=== PATIENT | male | born 1985 | race Two or more races ===

== ENCOUNTER 2025-03-20 11:39 | Inpatient (IN) | payer MEDICARE, MEDICAID ==
[~2025-03-20] VITALS: Ht 167.6 cm; Wt 61.7 kg
[2025-03-20] VITALS (11 sets, daily range): BP systolic 168–205; BP diastolic 109–127; PULSE 63–93; RESP 16–24; TEMP 98.1–99.1; O2SAT 94–98
--- NOTE | 2025-03-20 12:01 | ELECTROCARDIOGRAPH REPORT ---
[facility] Test Date: 2025-03-20 Test Time: 12:00:09 Pat Name: ANTHONY BEE Department: [facility]-ER Patient ID: [facility]-[id number] Room: Gender: M Putty Glazer: : 1985 Requested By: JAMEY BRYANT Order Number: [id number] Reading MD: Measurements Intervals [place] Rate: 82 P: 59 DC: 157 QRS: 80 QRSD: 77 T: 33 QT: 399 QTc: 466 Interpretive Statements Sinus rhythm Minimal ST depression, lateral leads Baseline wander in lead(s) V4 Please click the below link to view image of tracing.
--- NOTE | 2025-03-20 12:29 | RADIOLOGY REPORT ---
CHEST RADIOGRAPH INDICATION: CP TECHNIQUE: Single frontal view of the chest was obtained COMPARISON: None FINDINGS: Lines and Tubes: Tunneled right central venous catheter in satisfactory position. Lungs: Congestion Pleura: Trace bilateral pleural effusion No pneumothorax. Cardiomediastinal contours: Unremarkable Bones: Unremarkable IMPRESSION: Pulmonary vascular congestion.
[2025-03-20 12:41] LABS: MEAN PLATELET VOLUME 7.6 FL (7.4-10.4); RED CELL DISTRIBUTION WIDTH 16.2 % (11.5-14.5)
[2025-03-20 12:54] LABS: CREATININE 10.23 MG/DL (0.60-1.10); TOTAL CARBON DIOXIDE 36.2 MMOL/L (24-32); eCRCL 9 ML/MIN; eGFR 6 ML/MIN
--- NOTE | 2025-03-20 13:01 | Physician Documentation ---
History of Present Illness ~ Chief Complaint: Hypertension Stated Complaint: HIGH BLOOD PRESSURE Time Seen by MD: 12:38 HPI 39 year old male with HTN, ESKD on HD TTS came to the ER with cc of sob, orthopnea, dry cough for > 2weeks, he is not able to sleep during the nights due to nocturnal cough, he denies LE edema, he dose produce urine. denies fever he has undergone HD yesterday he is underging eval for LDKT from his [facility], undergoing HD > 1 Year, and was told he had atrophic kidneys Medication Reconciliation Allergies: Coded Allergies: cefazolin (Unverified Allergy, Unknown, 03/20/25) Scheduled Amlodipine Besylate (Amlodipine Besylate), 1 TAB PO HS, (Reported) Labetalol Hcl (Normodyne), 400 MG PO BID, (Reported) Lisinopril (Lisinopril), 1 TAB PO BID, (Reported) Past Medical History Past Medical History: Hypertension Other Past Medical History: ESKD on HD Past Surgical History: cholecystectomy Alcohol Use: Occasionally Drug Use: none Lives with: Family Lives In: Home Review of Systems All Other Systems at this time: Reviewed and Negative Physical Exam Vital Signs: Temperature: 99.7, Source: Temporal, Heart Rate: 86, Respiratory Rate: 18, BP: 224/134, Pulse Oximetry: 96, Weight: 63.500 Oxygen Flow Rate: 0 General Appearance: alert, no apparent distress Respiratory: lungs clear, normal breath sounds Chest: no accessory muscle use Cardiovascular: regular rate, rhythm Gastrointestinal: normal palpation, non-tender Progress Results/Orders Results/Orders Orders - JAMEY JACK MD Chest,Single View (03/20/25 11:49) Monitor (03/20/25 11:49) Saline Lock (03/20/25 11:49) Oxygen (03/20/25 11:49) Completed Orders - JAMEY JACK MD Chest,Single View (03/20/25 11:49) Cbc/Diff (03/20/25 11:49) PBNP (03/20/25 11:49) Electrocardiogram (03/20/25 11:49) Hs Troponin I W Calculations (03/20/25 11:49) Hs Troponin I W Calculations (03/20/25 13:49) Hs Troponin I W Calculations (03/20/25 14:49) CMP (03/20/25 11:49) Vital Signs 03/20/25 03/20/25 03/20/25 03/20/25 11:46 12:56 13:05 14:18 Temp 99.7 99.0 99.0 Pulse 86 99 93 Resp 18 B/P (MAP) 224/134 195/119 (144) 169/120 (136) Pulse Ox 96 98 O2 Flow Rate 0 0 Laboratory Tests Test 03/20/25 12:19 03/20/25 13:39 03/20/25 14:17 White Blood Count 4.8 Red Blood Count 2.70 L Hemoglobin 9.0 L Hematocrit 26.3 L Mean Corpuscular Volume 97.6 Mean Corpuscular Hemoglobin 33.5 H Mean Corpuscular Hemoglobin Concent 34.3 Red Cell Distribution Width 16.2 H Platelet Count 85 L Mean Platelet Volume 7.6 Neutrophils (%) (Auto) 58.5 Lymphocytes (%) (Auto) 27.8 Monocytes (%) (Auto) 10.7 Eosinophils (%) (Auto) 2.3 Basophils (%) (Auto) 0.7 Neutrophils # (Auto) 2.8 Lymphocytes # (Auto) 1.3 Monocytes # (Auto) 0.5 Eosinophils # (Auto) 0.1 Basophils # (Auto) 0.0 CBC Comment Sodium Level 146 H Potassium Level 5.3 H Chloride Level 103 Carbon Dioxide Level 36.2 H Anion Gap 7 L Blood Urea Nitrogen 45 H Creatinine 10.23 H Estimated GFR/1.73 m2 6 BUN/Creatinine Ratio 4.4 L Glucose Level 91 Calcium Level 8.3 L Total Bilirubin 1.0 Aspartate Amino Transf (AST/SGOT) 37 Alanine Aminotransferase (ALT/SGPT) 42 Alkaline Phosphatase 59 Troponin I High Sensitivity 116 *H 110 *H Pro-B-Type Natriuretic Peptide > 99201 H Total Protein 5.9 L Albumin 2.9 L Globulin 3.0 Albumin/Globulin Ratio 1.0 L Chemistry Comments Troponin I High Sens Percent Delta 5 Troponin I Hi Sens Absolute Change -6 Urine Specimen Description Urinal Urine Color Yellow Urine Clarity Clear Urine pH 8.5 Urine Specific Banks 1.020 Urine Protein >=300 H Urine Glucose (UA) 250 H Urine Ketones Negative Urine Occult Blood Large H Urine Nitrite Negative Urine Bilirubin Negative Urine Urobilinogen 0.2 Urine Leukocyte Esterase Negative Urine RBC 10-20 Urine WBC None seen Urine Squamous Epithelial Cells Few Urine Bacteria None seen Urine Culture Indicated Not ind Volume Urine Centrifuged 10 ml Urine Comment Medical Decision Making Additional information obtaine: old records Findings 39 year old male with HTN, ESKD on HD TTS came to the ER with cc of sob, ort hopnea, dry cough for > 2weeks, he is not able to sleep during the nights due to nocturnal cough, he denies LE edema, he dose produce urine. denies fever he has undergone HD yesterday he is underging eval for LDKT from his [facility], undergoing HD > 1 Year, and was told he had atrophic kidneys Labs- anemia, with elevated K of 5.3 probnp >17863, and trops of 116 EKG- mild st depression in v5 cxr- b/l pleural effusions Dd include pum edema 2/2 htn emergency, heart failure, TYPE 2 NE, will give lasix 60 mg once, labetalol 400 mg once, and aspirin 325 mg once he needs to be admitted for eval of pulm edema and htn emergency Consulted Dr. Patterson nephro and recommended nitro/nicardipine drip Heart Score: 3 Differential Dx:Considerations: Include: hypertension, malignant Departure Time of Disposition: 13:40 Admitted to Inpatient Unit: yes, to hospitalist Impression: Primary Impression: Hypertensive emergency Condition: Guarded Referrals: NO PRIMARY CARE PROVIDER (PCP) Additional Comment Seen with PA/ENVIRONMENTAL ENGINEERING PROFESSOR The patient is a 39-year-old male with end-stage renal disease on dialysis who comes in with shortness of breath as well as elevated troponin and evidence of some vascular congestion in his chest x-ray with extreme hypertension. The patient was treated in the emergency room with labetalol, the patient has fairly uncontrolled blood pressure and does have some concern for possible volume overload given the vascular congestion seen on his chest x-ray the patient will be admitted to the hospital with renal on consult. The patient's prior hospitalizations has been reviewed. The patient's pulse oximetry was interpreted as normal and adequate. The patient is nurse monitoring was interpreted as a sinus rhythm. The patient was seen with the resident physician I have reviewed the resident's note and I agree with the note in the assessment and plan as written. I have supervised all aspects of the residents care. I have individually examined the patient. Signature Scribe Signature: No scribe, Attestation: The note accurately reflects work and decisions made by me.Jamey Jack MD 03/22/25 06:48 findings, assessment, plan, and dispo d/w Dr. Marcie HODGE The note accurately reflects work and decisions made by me.Jamey Jack MD 03/22/25 06:48 MARTHA COFFEY, RES Mar 20, 2025 13:01 JAMEY JACK MD Mar 22, 2025 06:48
[2025-03-20 13:22] LABS: PRO BRAIN NATRIURETIC PEPTIDE > 30000 PG/ML (0-125)
[2025-03-20] MEDS ORDERED: morphine 4 MG/ML inj SYRINge IV PRN ×2 (14:40)
[2025-03-20] MEDS ORDERED: magnesium hydroxide 30ml (MOM) UD suspension PO PRN (14:40)
[2025-03-20] MEDS ORDERED: magnesium sulf-water 4G/100mL 100 ML IV PRN (14:40)
[2025-03-20] MEDS ORDERED: mag hydrox/Alum hydrox/simeth 30ml oral suspension PO PRN (14:40)
[2025-03-20] MEDS ORDERED: metoclopramide 5 mg/ml inj IV PRN (14:40)
[2025-03-20] MEDS ORDERED: ondansetron 4mg rapidly disintigrating tab PO PRN (14:40)
[2025-03-20] MEDS ORDERED: ondansetron/PF 4mg/2ml inj IV PRN (14:40)
[2025-03-20] MEDS ORDERED: magnesium Cl slow-release 64mg tablet PO PRN (14:40)
[2025-03-20] MEDS ORDERED: HYDROcodone/acetaminophen 5mg/325mg tablet PO PRN (14:40)
[2025-03-20] MEDS ORDERED: potassium Cl 40MEQ/1/2NS 520ml 520 ML IV PRN (14:40)
[2025-03-20] MEDS ORDERED: magnesium sulf-water 2g/50mL 50 ML IV PRN (14:40)
[2025-03-20] MEDS ORDERED: potassium Cl 20 mEq SR tablet PO PRN ×2 (14:40)
[2025-03-20] MEDS ORDERED: bisacodyl 10mg suppository rectal RC PRN (14:40)
[2025-03-20 14:41] LABS: LEUKOCYTE ESTERASE ,URINE NEGATIVE (Neg); NITRITES, URINE NEGATIVE (Neg); OCCULT BLOOD,URINE LARGE (Neg)
[2025-03-20 14:43] LABS: UA COLLECTION TYPE URINAL
[2025-03-20 14:47] LABS: SQUAMOUS EPITHELIAL CELL,UR FEW /LPF (FEW)
[2025-03-20] MEDS: niCARDipine-NS 40mg/200ml IVPB 200 ML IV SCH (15:19)
[2025-03-20 15:48] LABS: APTT 27 SECONDS (22-32); INR 1.1 INR
[2025-03-20] MEDS ORDERED: albumin (human) 25% 100ml IV 100 ML IV PRN (16:40)
--- NOTE | 2025-03-20 18:01 | CONSULTATION REPORT ---
Consult Providers to CC ~ History of Present Illness Primary Medical Doctor: [facility] ER Reason for Admit\Complaint: malignant hypertension, fluid overload History of Present Illness I have known 39/m, over this year from [facility] dialysis and he is known for frequently missing his dialysis treatments, frequently runs potassium of 8-9 and when advised, he has even avoided talking to me during regular rounds. He is newly and his has been worked up to donate him her kidney. The [facility] is quite aware of his non compliance and the frequent hyperkalemic episodes that have been life threatening, with poorly controlled hypertension from his volume overload from frequently missing his treatment. The diastolic heart failure from the uncontrolled hypertension has also perpetuated his fluid overload symptoms, with coughing. He has h/o HTN, ESKD on HD TTS came to the ER with cc of sob, orthopnea, dry cough for > 2weeks, he is not able to sleep during the nights due to nocturnal cough, he denies LE edema, he dose produce urine. denies fever. He recalls that he has been to [facility] and has had outpatient work up over there as well. he has undergone HD yesterday he is undergoing eval for LDKT from his [facility], undergoing HD > 1 Year, and was told he had atrophic kidneys Allergies: Coded Allergies: cefazolin (Unverified Allergy, Unknown, 03/20/25) Past Medical History Past Medical History Hypertension ESKD on HD non compliance to dialysis frequently many episodes of life threatening hyperkalemia to 8 and 9 just like that Past Surgical History Surgical History Comment s/p cholecystectomy has TDC Past Social History Social History Comment Alcohol Use: Occasionally Drug Use: none Lives with: Family Lives In: Home non smoker. ROS ROS coughing, shortness ofrbeath, orthopnea, poorly controlled BP. Exam Vitals: Vital Signs Date Time Temp Pulse Resp B/P (MAP) Pulse Ox O2 Delivery O2 Flow Rate FiO2 03/20/25 17:11 98.4 88 17 151/109 (123) 96 0 General: Vital Signs: As above General: Normal body habitus, no acute distress. Skin: No rashes, lumps, ulcers, blisters, purpura or petechiae HEENT: Anicteric sclera, HUNTER Neck: Supple and nontender without enlargement of the thyroid, or lymphadenopathy. Chest: Normal size and shape, no tenderness, CTA bilaterally Heart: Regular. No jugular venous distention, S1 and S2 heard , no gallop Abdomen: Soft and non tender no organomegaly,BS+ Extremities: No pedal edema Neuro: Nonfocal. Diagnostic Data Last Recorded Lab Results: 03/20/25 1219 03/20/25 1219 Diagnostic Data: Laboratory Tests Test 03/20/25 15:04 Prothrombin Time 10.9 SECONDS (9.0-12.0) INR International Normalized Ratio 1.1 INR Activated Partial Thromboplast Time 27 SECONDS (22-32) Coagulation Comments Problems: (1) Fluid overload Assessment & Plan: needs to be dialyzed to help with the poorly controlled BP to some extent. I am also trying to optimize his BP meds. He did not tolerate thenicardipine that was started in ER and dropped his BP low quickly and this was stopped in ER. (2) Non compliance with medical treatment Assessment & Plan: to renal diet and frequently missing treatment with non chalant behavior to proper advices in this regard. He has in fact avoided from seeing/talking to me, during the routine rounds last month. So made very clear about how he is risking his life and continued high pressure or hyperkalemia - can cause stunning of his heart, worsen the HFPEF, can sustain OR, can suddenly , can possibly get CVA that can make him crippled for the life etc. (3) Hypertensive emergency Status: Acute Assessment & Plan: he is on Lisinopril 20mg bid, Labetalol 200mg bid and amlodipine 10mg qday. will increase labetalol to 400 mg bid to start with. will also give him a dose of Minoxidil 5mg PO now. Needs Echocardiogram to assess the LVEF NNAMDI RODRIGUEZ MD Mar 20, 2025 18:01
--- NOTE | 2025-03-20 18:14 | HISTORY AND PHYSICAL ---
History & Physical Providers to CC Chief complaint, shortness of breath cough ~ History of Present Illness Reason for Admit\Complaint: As above History of Present Illness This is . a 39 year old male with HTN, ESKD on HD TTS , history of hypertension, bilateral pleural effusions, thrombocytopenia, atrophic kidneys, CHF, cholecystectomy, history of methamphetamine abuse remote, clean now, anemia hemoglobin 9, hypoalbuminemia, presented today to emergency department chief complaint shortness of breath associated with cough; in addition patient came to the ER with cc of sob, orthopnea, dry cough for > 2weeks, he is not able to sleep during the nights due to nocturnal cough, he denies LE edema, he dose produce urine. denies fever, he has undergone HD yesterday, he is underging eval for LDKT from his [facility] Rangel, undergoing HD > 1 Year, and was told he had atrophic kidneys. Emergency department patient was evaluated by physician was diagnosed with hypertensive emergency, and after consultation with Nephrology doctor decision was made to admit patient for further evaluation and treatment, patient started on Cardene infusion. No additional complaint or concerns. Allergies: Coded Allergies: cefazolin (Unverified Allergy, Unknown, 03/20/25) Active prescriptions Reviewed reconciled Home Medications Pending Past Medical History Past Medical History As in HPI Past Surgical History Surgical History Comment As in HPI Past Social History Social History Comment Deny illicit drug abuse tobacco alcohol use live with the family good social support Health Maintenance Health Maintenance Noncontributory ROS ROS I review of systems Constitutional : no fever , no chills, or weakness. No diaphoresis. Allergic/Immunologic, no lymphadenopathy, no hives, no skin eruptions. Eyes, no recent visual changes, no eye pain, no photophobia. Ears, nose, mouth, throat, no sore throat, no nosebleed, no ear pain. Cardiovascular, no palpitations, skipped beats, chest pain, no peripheral edema, Respiratory, no dyspnea, orthopnea, has cough,no hemoptysis, chest wall pain. Gastrointestinal, no abdominal pain, nausea, vomiting, constipation or diarrhea. : no dysuria, hematuria, pelvic pain, urethral d/c. Endocrine, no polyuria, polydipsia, recent unintentional weight gain or loss. Hematologic/Lymphatic, no petechiae, no enlarged lymph nodes, no bone pain. Integumentary, no rash, no skin lesions, Musculoskeletal, no muscle aches, or pain, no muscle cramps, no recent change in gait Neurological, no dizziness, no headache, no syncope, no paresthesia. Psychiatric, no delusions, visual hallucinations, or hearing hallucinations. ROS - in rest is as in HPI. Exam Vitals: Vital Signs Date Time Temp Pulse Resp B/P (MAP) Pulse Ox O2 Delivery O2 Flow Rate FiO2 03/20/25 17:11 98.4 88 17 151/109 (123) 96 0 Vital signs, stable ,afebrile. Pulse Oximetry reflects adequate oxygenation. BMI is 21, weight 63 kg General: well developed, well nourished. Awake , alert, and oriented x4, resting comfortably in the bed, in no acute distress . Skin: Warm, dry, no pallor, no rash or petechiae. HEENT: Atraumatic, normocephalic, EOMI, anicteric sclera B; pink conjunctiva; PERRLA, normal oropharynx, moist oral and nasal mucosa. Tympanic membrane , nose , throat clear. Neck: Trachea midline. Supple, full range of motion, no JVD, bruit , hepatojugular reflex , lymphadenopathy or masses, or other lesions Cardiac: Regular rhythm, regular rate no murmurs, rubs, or gallops. Normal S1 and S2, no S3 noticed. PMI is normal. Respiratory: Equal breath sounds bilaterally, no tachypnea; lungs clear to auscultation bilaterally, no wheezing ,rub or rales, or crackles. Chest wall is symmetric and without deformity. No signs of trauma. Chest wall is nontender. No signs of respiratory distress. Resonance is normal upon percussion bilaterally. Gastrointestinal: Abdomen symmetric, non-distended, soft, non-tender, normal bowel sounds x4 quadrant, normoactive, no hepatosplenomegaly , no masses , no bruit, no flank pain bilaterally. No voluntary guarding, rebound, or rigidity. No tenderness to percussion. No pulsatile masses. Equal femoral pulses. No Cardoza's sign or McBurney point tenderness. Back; no CVA tenderness bilaterally, no deformities. Neck and back are without deformity as well. No tenderness noted on palpation of the spinous processes. Spinous processes are midline. Cervical, thoracic, and lumbar paraspinal muscles are not tender and are without spasm. : normal external genitalia, without lesions, swelling, masses or tenderness. Musculoskeletal: Extremities, normal range of motion, non-tender, muscle strength 5/5 x 4. Negative Homans signs bilaterally on lower extremity. Distal pulses full symmetrical, no clubbing, cyanosis , edema. Neurological: Speech is clear, alert, and oriented x 4. No motor or sensory deficit, deep tendon reflexes normal, cerebellar intact. Cranial nerves II-XII intact. Psych: Alert and or appropriate, normal affect. Vascular: Good distal pulses, which are equal x4; capillary refill less than 2 seconds. Lymphatic, no lymphadenopathy. Diagnostic Data Last Recorded Lab Results: 03/20/25 1219 03/20/25 1219 Diagnostic Data: Laboratory Tests Test 03/20/25 15:04 Prothrombin Time 10.9 SECONDS (9.0-12.0) INR International Normalized Ratio 1.1 INR Activated Partial Thromboplast Time 27 SECONDS (22-32) Coagulation Comments Advance Care Planning Advanced Care plannin - 30 Minutes Additional Plan Assessment Hypertensive emergency End-stage renal disease hemodialysis History of kidney atrophy TX type 2 secondary to all of the above Anemia hemoglobin 9 Hyperkalemia CHF in exacerbation preserved ejection fraction Bilateral pleural effusions Thrombocytopenia Additional comorbidities, history of cholecystectomy, methamphetamine use remote clean now, noncompliance with treatment Plan Hep-Lock Cardene infusion Correct electrolytes Additional lab work pending Nephrology Is on the case Lasix IV, prn I reconciled home medications DVT gastropathy prophylaxis addressed Sepsis Screening Reassessment Date: Mar 20, 2025 Date of Service: Mar 20, 2025 Billing Provider: ERIC BLACK MD Common Visit Codes: 96914-OTLNNOL INP/OBS CARE (HIGH) Secondary Visit Codes: 96615-FLCRATGB CARE PLAN 30 MINUTES ERIC BLACK MD Mar 20, 2025 18:14
[2025-03-20] MEDS: PERFLUTREN PROTEIN-A MICROSPHR (Optison) 0.22 MG/ML 3ML VIAL IV ONE (18:15)
[2025-03-20] MEDS: heparin, porcine 5000 units/ml vial SQ SCH (20:00)
[2025-03-20] MEDS: K and/or MAG REPLACEMENT MC SCH (20:00)
[2025-03-20] MEDS: heparin 1,000unit/ml 10ml vial 10 ML IV ONE (20:59)
[2025-03-20] MEDS: heparin 1,000 units/ml 10ml inj IV ONE (20:59)
[2025-03-20] MEDS: heparin 1,000 units/ml 10ml inj HE ONE ×2 (21:00)
[2025-03-20] MEDS: docusate sod 100mg capsule PO SCH (22:25)
[2025-03-20] MEDS: hydrALAZINE 20mg/ml inj. IV PRN (22:25)
[2025-03-20] MEDS: HYDROcodone/acetaminophen 10/325mg tab PO PRN (23:42)
[2025-03-20] MEDS ORDERED: AMLO10TA13 PO (23:48)
[2025-03-20] MEDS ORDERED: LISI20TA28 PO (23:48)
[2025-03-20] MEDS ORDERED: [UNRECOGNIZED DRUG - CODE] PO (23:48)
[2025-03-21] VITALS (21 sets, daily range): BP systolic 110–185; BP diastolic 73–121; PULSE 73–103; RESP 13–18; TEMP 97.8–98.1; O2SAT 95–99
[2025-03-21 03:49] LABS: MEAN PLATELET VOLUME 8.0 FL (7.4-10.4); RED CELL DISTRIBUTION WIDTH 16.3 % (11.5-14.5)
[2025-03-21 04:05] LABS: CREATININE 6.11 MG/DL (0.60-1.10); TOTAL CARBON DIOXIDE 31.1 MMOL/L (24-32); eCRCL 14 ML/MIN; eGFR 10 ML/MIN
[2025-03-21] MEDS: pantoprazole 40mg Tablet.DR PO SCH (07:31)
[2025-03-21] MEDS: Nepro carb steady vanilla 8oz. PO SCH (08:00)
--- NOTE | 2025-03-21 08:08 | ELECTROCARDIOGRAPH REPORT ---
[facility] Test Date: 2025-03-20 Test Time: 15:50:49 Pat Name: ANTHONY BEE Department: EMERGENCY ROOM Room: [address] Gender: M Wood Caulker: JUAN J : 1985 Requested By: DEPARTMENT EMERGENCY Order Number: [id number] Reading MD: Measurements Intervals [place] Rate: 95 P: 75 FL: 158 QRS: 76 QRSD: 80 T: -44 QT: 388 QTc: 488 Interpretive Statements Sinus rhythm Probable left atrial enlargement Anterior infarct, old Nonspecific T abnormalities, lateral leads Please click the below link to view image of tracing.
--- NOTE | 2025-03-21 11:32 | VASCULAR REPORT ---
The above named patient was referred for a NON-INVASIVE RENAL ARTERY EVALUATION. The evaluation includes grayscale imaging, color flow Doppler and spectral analysis of the abdominal aorta and renal arteries, as well as renal parenchymal flow analysis. Patient IN-PATIENT InaRSition's Hypertension Renal Artery Doppler Right Renal Artery Left Renal Artery Proximal 83.1/20.0 cm/sec Proximal Mid 29.4/11.5 cm/sec Mid Distal 22.8/11.5 cm/sec Distal Renal/Aorta Ratio 0.90 Renal/Aorta Ratio Resistive Index 0.68 Resistive Index Renal Measurements Right Left Kidney Size 7.35 cm 3.05 cm Kidney Size Interlobar Artery 18/6 cm/s Interlobar Artery CONCLUSION Limited exam due to bowel gas, unable to hold breath, movement and atrophied kidneys. Left Kidney not visualized, Right renal artery not seen in entirty, unable to obtain Right renal hilum flow. No stenosis visualized
--- NOTE | 2025-03-21 17:43 | CARDIOLOGY REPORT ---
APPROVED REPORT EXAM: Comprehensive 2D, Doppler, and color-flow Echocardiogram. 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 2.96 cm IVC 16.92 mm FS (%) 35.5 % SV 59.6 ml CO 3.8 L/min M-Mode Dimensions Left Atrium(MM) 5.02 (2.5-4.0cm) Aortic Root 3.62 (2.2-3.7cm) Aortic Cusp Exc 2.30 (1.5-2.0cm) MV EPSS 0.9 (<0.5cm) Aortic Valve AoV Peak Wilman. 118.4 cm/s AoV VTI 23.2 cm AO Peak GR. 5.6 mmHg AO Mean GR. 3 mmHg LVOT VTI 22.83 cm LVOT Peak Wilman. 112.0 cm/s BRENDA(VTI)/BSA 3.68 cm2/m2 BRENDA (VTI) 3.68 cm2 AV DI 0.98 % Mitral Valve MV E Velocity 118.5 cm/s MV Peak Gr. 4 mmHg MV DECEL TIME 168 ms MV A Velocity 47.2 cm/s MV PHT 28 ms E/A Ratio 2.5 MVA (PHT) 7.86 cm2 MV VMax 101.3 cm/s Tricuspid Valve TR P. Velocity 311 cm/s RAP ESTIMATE 10 mmHg TR Peak Gr. 39 mmHg RVSP 49 mmHg LEFT VENTRICLE Normal LV size and function. Mild tomorrow concentric hypertrophy. Overall LVEF is 65%. RIGHT VENTRICLE RV is normal size and function. Elevated PA systolic pressure of 49 mm of mercury. ATRIA Left atrium is borderline severely dilated. AORTIC VALVE Trileaflet AV appears mildly sclerotic without stenosis. No insufficiency. MITRAL VALVE Mitral valve leaflets are mildly thickened with mild annular calcificartion. No stenosis. Trace regurgitation by color and spectral flow Doppler. TRICUSPID VALVE The tricuspid valve is normal in structure with mild regurgitation by color and spectral flow Doppler. PULMONIC VALVE The pulmonary valve is normal in structure. with physiologic insufficiency by color and spectral flow Doppler. GREAT VESSELS The aortic root is normal in size. The IVC is normal in size and collapses >50% with inspiration. PERICARDIUM Mild circumferential pericardial effusion without hemodynamic compromise. Slight diastolic RV/RA compression present without tamponade. Pleural effusion present. Other Information Study Quality: Adequate Conclusion Overall LVEF is 65%. Normal LV size and function. Mild tomorrow concentric hypertrophy. RV is normal size and function. Elevated PA systolic pressure of 49 mm of mercury. Trileaflet AV appears mildly sclerotic without stenosis. No insufficiency. Mitral valve leaflets are mildly thickened with mild annular calcificartion. No stenosis. Trace regurgitation by color and spectral flow Doppler. The pulmonary valve is normal in structure. with physiologic insufficiency by color and spectral flow Doppler. Mild circumferential pericardial effusion without hemodynamic compromise. Slight diastolic RV/RA compression present without tamponade. Pleural effusion present.
--- NOTE | 2025-03-21 17:52 | PROGRESS NOTE- Residence ---
Progress Note - Resident Providers to CC Resident Creating Document: ALEXBARTOLO, NIMO ~ Central Line/PICC still needed: Yes Central Line/PICC Necessity: Req HD/Plasmapheresis Morales-Non Protocol Morales Indications Met/Not Met: F/C Indications Not Met Antibiotic Timeout Antibiotic Ordered?: No Subjective Patient seen and examined at the bedside today. He had one round of dialysis done yesterday. Denied any new concerns or complaints. Denied any overnight events. Discussed thoroughly with the patient thoroughly regarding the importance of staying compliant with his medication and with the dialysis schedule. Patient endorsed understanding and stated that he would be more compliant with his treatment and his dialysis. Discussed regarding dialysis tomorrow and possible discharge after dialysis. Objective Vital Signs Date Time Temp Pulse Resp B/P (MAP) Pulse Ox O2 Delivery O2 Flow Rate FiO2 03/21/25 17:08 88 03/21/25 11:51 158/100 (119) 03/21/25 10:45 98.1 13 99 Room Air 03/21/25 08:00 0.0 Result Diagram: 03/21/25 0325 03/21/25 0325 General: Normal body habitus, no acute distress. Skin: No rashes, lumps, ulcers, blisters, purpura or petechiae HEENT: Anicteric sclera, HUNTER Neck: Supple and nontender without enlargement of the thyroid, or lymphadenopathy. Chest: Normal size and shape, no tenderness, CTA bilaterally Heart: Regular. No jugular venous distention, S1 and S2 heard , no gallop Abdomen: Soft and non tender no organomegaly,BS+ Extremities: No pedal edema Neuro: Cranial nerves 2-12 intact. No focal motor or sensory deficits. Coagulation Studies Laboratory Tests Test 03/20/25 15:04 Prothrombin Time 10.9 SECONDS (9.0-12.0) INR International Normalized Ratio 1.1 INR Activated Partial Thromboplast Time 27 SECONDS (22-32) Coagulation Comments Advance Care Planning Advanced Care plannin - 30 Minutes Assessment Assessment 39 years old male with with past medical history of end-stage renal disease, hypertension, congestive heart failure with preserved ejection fraction, noncompliance is admitted in the hospital for evaluation and management of acute hypoxemic respiratory failure most likely secondary to fluid overload, hypertensive emergency. Plan Plan End-stage renal disease Noncompliance The patient underwent one cycle of dialysis yesterday. The patient's creatinine has improved from 10.23 to 6.11. BUN has dropped down to 22 today. He appears to be in less respiratory distress. We will plan to repeat one more cycle of dialysis tomorrow. Counseled the patient regarding the importance of staying compliant with his medication, diet plan, dialysis schedule. The patient is being evaluated at [facility] for renal transplantation. His is also undergoing workup as she wants to be the donor. The patient endorses understanding and compliance. We will continue to reiterate. Hypertensive emergency Patient's labetalol was increased to 400 mg b.i.d.. Lisinopril continues to be 20 mg b.i.d. and amlodipine 10 mg q.day. Vascular ultrasound of the kidneys report the patient had atrophied kidneys but the examination was limited due to bowel gas. Started the patient on minoxidil 5 mg p.o. daily as the patient's blood pressure continued to be significantly elevated today. Continue to monitor the patient's blood pressure closely. Advised compliance with the medication and dietary modification. We will continue to monitor. Hyperkalemia The patient's potassium is 4.7 today. He underwent dialysis yesterday. Continue to monitor the patient's renal function test closely. Acute respiratory distress Congestive heart failure preserved ejection fraction Fluid overload due to end-stage renal disease ECHO: Conclusion Overall LVEF is 65%. Normal LV size and function. Mild tomorrow concentric hypertrophy. RV is normal size and function. Elevated PA systolic pressure of 49 mm of mercury. Trileaflet AV appears mildly sclerotic without stenosis. No insufficiency. Mitral valve leaflets are mildly thickened with mild annular calcificartion. No stenosis. Trace regurgitation by color and spectral flow Doppler. The pulmonary valve is normal in structure. with physiologic insufficiency by color and spectral flow Doppler. Mild circumferential pericardial effusion without hemodynamic compromise. Slight diastolic RV/RA compression present without tamponade. Pleural effusion present. The patient appears to be in less distress after dialysis yesterday. We will repeat dialysis tomorrow. Continue management per the primary care team/hospitalist. CODE STATUS: Full code Disposition: Continue to monitor the patient's vitals closely. Continue medical management. Planned to undergo dialysis tomorrow. Anticipate discharge home in the next 24-48 hours. Bartolo Hernández MD Internal Medicine Resident, PGY-3 Nephrology attending: The patient still has been running higher BP. He has been requesting to be discharged and I have explained to him that he will be dialyzed tomorrow. will start minoxidil 5mg bid. BP needs to get better prior to dischargea. Reviewed the echocardiogram results. LVh. EF is good. HD orders placed for tomorrow. Hoping to get him out ofhere tomorrow. Patient seen and examined with resident. care plan reviewed. Lester Rodriguez MD Date of Service: Mar 21, 2025 Billing Provider: LESTER RODRIGUEZ MD, SURYA PRATIK, RES Mar 21, 2025 17:52 LESTER RODRIGUEZ MD Mar 21, 2025 19:16
[2025-03-21] MEDS ORDERED: diltiazem-NS 100mg/100ml 100 ML IV SCH (18:10)
--- NOTE | 2025-03-21 19:23 | PROGRESS NOTE ---
Daily Progress Note Providers to CC ~ better today still occasionally blood pressure is high Central Line/PICC still needed: No Morales-Non Protocol Morales Indications Met/Not Met: F/C Indications Not Met Antibiotic Timeout Antibiotic Ordered?: No MRSA Education MRSA Education Provided to pt: No Subjective as above Objective Vital Signs Date Time Temp Pulse Resp B/P (MAP) Pulse Ox O2 Delivery O2 Flow Rate FiO2 03/21/25 18:01 78 159/108 (125) 03/21/25 17:00 98.0 13 99 Room Air 03/21/25 08:00 0.0 Vital signs, stable ,afebrile. Pulse Oximetry reflects adequate oxygenation. General: well developed, well nourished. Awake , alert, and oriented x4, resting comfortably in the bed, in no acute distress . Skin: Warm, dry, no pallor, no rash or petechiae. HEENT: Atraumatic, normocephalic, EOMI, anicteric sclera B; pink conjunctiva; PERRLA, normal oropharynx, moist oral and nasal mucosa. Tympanic membrane , nose , throat clear. Neck: Trachea midline. Supple, full range of motion, no JVD, bruit , hepatojugular reflex , lymphadenopathy or masses, or other lesions Cardiac: Regular rhythm, regular rate no murmurs, rubs, or gallops. Normal S1 and S2, no S3 noticed. PMI is normal. Respiratory: Equal breath sounds bilaterally, no tachypnea; lungs clear to auscultation bilaterally, no wheezing ,rub or rales, or crackles. Chest wall is symmetric and without deformity. No signs of trauma. Chest wall is nontender. No signs of respiratory distress. Resonance is normal upon percussion bilaterally. Gastrointestinal: Abdomen symmetric, non-distended, soft, non-tender, normal bowel sounds x4 quadrant, normoactive, no hepatosplenomegaly , no masses , no bruit, no flank pain bilaterally. No voluntary guarding, rebound, or rigidity. No tenderness to percussion. No pulsatile masses. Equal femoral pulses. No Cardoza's sign or McBurney point tenderness. Back; no CVA tenderness bilaterally, no deformities. Neck and back are without deformity as well. No tenderness noted on palpation of the spinous processes. Spinous processes are midline. Cervical, thoracic, and lumbar paraspinal muscles are not tender and are without spasm. : normal external genitalia, without lesions, swelling, masses or tenderness. Musculoskeletal: Extremities, normal range of motion, non-tender, muscle strength 5/5 x 4. Negative Homans signs bilaterally on lower extremity. Distal pulses full symmetrical, no clubbing, cyanosis , edema. Neurological: Speech is clear, alert, and oriented x 4. No motor or sensory deficit, deep tendon reflexes normal, cerebellar intact. Cranial nerves II-XII intact. Psych: Alert and or appropriate, normal affect. Vascular: Good distal pulses, which are equal x4; capillary refill less than 2 seconds. Lymphatic, no lymphadenopathy. 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 the above Anemia hemoglobin 9 Hyperkalemia CHF in exacerbation preserved ejection fraction Bilateral pleural effusions Thrombocytopenia Additional comorbidities, history of cholecystectomy, methamphetamine use remote clean now, noncompliance with treatment Plan Hep-Lock Cardene infusion Correct electrolytes Additional lab work pending Nephrology Is on the case Lasix IV, prn I reconciled home medications DVT gastropathy prophylaxis addressed Sepsis Screening Reassessment Date: Mar 21, 2025 Skin Color: Normal Date of Service: Mar 21, 2025 Billing Provider: ERIC BLACK MD Common Visit Codes: 63399-[id number] INP/OBS CARE(HIGH) ERIC BLACK MD Mar 21, 2025 19:23
[2025-03-21] MEDS: niCARDipine-NS 40mg/200ml IVPB 200 ML IV SCH (19:58)
--- NOTE | 2025-03-21 20:06 | ELECTROCARDIOGRAPH REPORT ---
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 Carol Cuadra Measurements Intervals [place] Rate: 94 P: 72 VT: 143 QRS: 82 QRSD: 82 T: 109 QT: 385 QTc: 482 Interpretive Statements Sinus rhythm Probable left atrial enlargement Borderline repolarization abnormality Non specific ST T Wave changes Electronically Signed On 03-22-2025 7:07:[address] Carol Cuadra Please click the below link to view image of tracing.
--- NOTE | 2025-03-21 21:22 | RADIOLOGY REPORT ---
CLINICAL HISTORY: chest pain TECHNIQUE: 1 view of the chest was obtained. WID: COMPARISON: DI CHEST,SINGLE VIEW on DOS: 03/20/25 FINDINGS: Lungs: Trace septal thickening Cardiomediastinal silhouette: normal in size. Right total central venous catheter with tip terminating within the cavoatrial junction. Bones: No acute osseous abnormality. Imaged Upper Abdomen: unremarkable. IMPRESSION: Trace pulmonary vascular congestion Tunneled dialysis catheter
[2025-03-21] MEDS: aspirin 325mg tablet, delayed-release (Ecotrin) PO ONE (23:06)
[2025-03-22] VITALS (16 sets, daily range): BP systolic 102–140; BP diastolic 58–82; PULSE 70–96; RESP 14–25; TEMP 97.4–97.7; O2SAT 96–99
--- NOTE | 2025-03-22 04:26 | PROGRESS NOTE- Residence ---
Progress Note - Resident Providers to CC Resident Creating Document: GLADYS CARDOZOESH, RES ~ Antibiotic Timeout Antibiotic Ordered?: No Subjective We got a call from RN Ms. Orozco about the left upper arm pain. Seen and examined the patient at bedside. He reported pain over the left arm and denied any active chest pain and other anginal equivalents. He thinks that the pain might be due IV line insertion however we did the EKG and troponin. EKG showed ST changes in lead 2, 3, AVF which is new change from the previous EKG and troponins was elevated to 142 from 85. He endorses that he is having the fluid overload in the lungs and around the heart which may be relieved with hemodialysis scheduled on today. We consulted Dr. Cuadra over the night meanwhile we gave 2 doses of 0.4 nitroglycerin sublingually and aspirin 325 mg, atorvastatin 80 mg and the pain over the left arm got relieved and it went down to 0/10. We thought of keeping the patient on heparin but considering thrombocytopenia of 82 , patient may not be a candidate for heparin therapy. He thinks that patient may not benefit from cardiac catheterization recommendations from Dr. Cuadra. Objective Vital Signs Date Time Temp Pulse Resp B/P (MAP) Pulse Ox O2 Delivery O2 Flow Rate FiO2 03/22/25 02:00 97.4 96 15 129/75 (93) 96 Room Air 03/21/25 20:00 0.0 Result Diagram: 03/21/25 0325 03/21/25 0325 General: Alert, awake, oriented to time place person. Not in acute distress Skin: No rashes, lumps, ulcers, blisters, purpura or petechiae HEENT: Anicteric sclera, HUNTER Neck: Supple and nontender without enlargement of the thyroid, or lymphadenopathy. Chest: Normal size and shape, no tenderness, CTA bilaterally Heart: Regular. No jugular venous distention, S1 and S2 heard , no gallop Abdomen: Soft and non tender no organomegaly,BS+ Extremities: No pedal edema Coagulation Studies Laboratory Tests Test 03/20/25 15:04 Prothrombin Time 10.9 SECONDS (9.0-12.0) INR International Normalized Ratio 1.1 INR Activated Partial Thromboplast Time 27 SECONDS (22-32) Coagulation Comments Advance Care Planning Advanced Care plannin - 30 Minutes Assessment Assessment 39 years old male with with past medical history of end-stage renal disease, hypertension, congestive heart failure with preserved ejection fraction, noncompliance is admitted in the hospital for evaluation and management of acute hypoxemic respiratory failure most likely secondary to fluid overload, hypertensive emergency. Plan Plan Chest pain possibly angina EKG showed ST changes in 2, 3, AVF, 1 aVL. Recent elevation of troponin to 140s from 80s. we are tracking the troponin. Completely resolved with nitroglycerin therapy, aspirin, atorvastatin. Second EKG is better than the 1st EKG. We consulted Dr. Cuadra and he thinks that patient may not benefit from the overnight catheterization . Touch base with roller shop utility worker, Dr. Khalif Cardozo IM Night resident, PGY 2 Date of Service: Mar 22, 2025 Billing Provider: REFUGIO BINGHAM MD, VENKATESH, RES Mar 22, 2025 04:26
--- NOTE | 2025-03-22 06:13 | ELECTROCARDIOGRAPH REPORT ---
[facility] Test Date: 2025-03-22 Test Time: 00:21:55 Pat Name: ANTHONY BEE Department: [facility] 3S Room: [address] Gender: M Manager Hospital: : 1985 Requested By: GILBERTO CARDOZO Order Number: [id number] Reading MD: Dr. Carol Cuadra Measurements Intervals [place] Rate: 87 P: 79 [place]: 156 QRS: 81 QRSD: 83 T: 100 QT: 400 QTc: 482 Interpretive Statements Sinus rhythm Probable left atrial enlargement Borderline repolarization abnormality Non specific ST-T wave changes Electronically Signed On 03-22-2025 7:08:[address] Carol Cuadra Please click the below link to view image of tracing.
[2025-03-22 06:23] LABS: CREATININE 10.02 MG/DL (0.60-1.10); LACTATE DEHYDROGENASE 316 U/L (85-227); TOTAL CARBON DIOXIDE 27.7 MMOL/L (24-32); eCRCL 9 ML/MIN; eGFR 6 ML/MIN
[2025-03-22 06:50] LABS: MEAN PLATELET VOLUME 7.7 FL (7.4-10.4); RED CELL DISTRIBUTION WIDTH 15.9 % (11.5-14.5)
[2025-03-22 07:28] LABS: HIV ANTIBODY 1&2 RAPID NON-REACTIVE (Neg)
[2025-03-22] MEDS ORDERED: albumin (human) 25% 100ml IV 100 ML IV PRN (08:00)
[2025-03-22] MEDS: EPOETIN ALFA-EPBX 20,000 UNIT/ML 1 ML MDV IV ONE (09:08)
[2025-03-22 09:12] LABS: HBSAG SCREEN Negative (Negative)
[2025-03-22] MEDS: heparin 1,000 units/ml 10ml inj HE ONE ×2 (09:20→09:21)
[2025-03-22] MEDS: heparin 1,000unit/ml 10ml vial 10 ML IV ONE (09:21)
[2025-03-22] MEDS: heparin 1,000 units/ml 10ml inj IV ONE (09:22)
--- NOTE | 2025-03-22 14:32 | PROGRESS NOTE- Residence ---
Progress Note - Resident Providers to CC Resident Creating Document: ALEXBARTOLO, RES ~ Central Line/PICC still needed: Yes Central Line/PICC Necessity: Req HD/Plasmapheresis Morales-Non Protocol Morales Indications Met/Not Met: F/C Indications Not Met Antibiotic Timeout Antibiotic Ordered?: No Subjective Patient seen and examined at the bedside today. He is getting dialysis done and he was off of the Cardizem drip. His systolic blood pressure was in the 120s and the patient denied any new concerns or complaints at the moment. Stated that he had pain in his left forearm yesterday which currently resolved. Denied any chest pain, palpitations, shortness of breaths, nausea, vomiting at the moment. Objective Vital Signs Date Time Temp Pulse Resp B/P (MAP) Pulse Ox O2 Delivery O2 Flow Rate FiO2 03/22/25 12:47 88 03/22/25 11:25 97.6 20 137/78 (97) 96 Room Air 03/22/25 08:00 0.0 Result Diagram: 03/22/25 0625 03/22/25 0540 General: Normal body habitus, no acute distress. Skin: No rashes, lumps, ulcers, blisters, purpura or petechiae HEENT: Anicteric sclera, HUNTER Neck: Supple and nontender without enlargement of the thyroid, or lymphadenopathy. Chest: Normal size and shape, no tenderness, clear breath sounds bilaterally. Heart: Regular. No jugular venous distention, S1 and S2 heard , no gallop Abdomen: Soft and non tender no organomegaly,BS+ Extremities: No pedal edema Neuro: Cranial nerves 2-12 intact. No focal motor or sensory deficits. Coagulation Studies Laboratory Tests Test 03/20/25 15:04 Prothrombin Time 10.9 SECONDS (9.0-12.0) INR International Normalized Ratio 1.1 INR Activated Partial Thromboplast Time 27 SECONDS (22-32) Coagulation Comments Advance Care Planning Advanced Care plannin - 30 Minutes Assessment Assessment 39 years old male with with past medical history of end-stage renal disease, hypertension, congestive heart failure with preserved ejection fraction, noncompliance is admitted in the hospital for evaluation and management of acute hypoxemic respiratory failure most likely secondary to fluid overload, hypertensive emergency. Plan Plan End-stage renal disease Noncompliance Repeated another cycle of dialysis today. Patient tolerated the dialysis well. His blood pressure were well controlled at the time of dialysis and after dialysis. Patient's respiratory distress appears to be resolving. There is no complaint of any cough or shortness of breaths. Counseled the patient regarding the importance of staying compliant with his medication, diet plan, dialysis schedule. The patient is being evaluated at [facility] for renal transplantation. His is also undergoing workup as she wants to be the donor. The patient endorses understanding and compliance. We will continue to reiterate. Hypertensive emergency In view of the patient's significantly elevated blood pressures he was treated with the IV Cardizem overnight. The patient's blood pressure came down low systolic 110s and the Cardizem drip was discontinued today in the morning. The patient's blood pressure has been stabilized post the Cardizem drip. He tolerated dialysis well and there was no significant changes in the blood pressure. Started the patient on minoxidil 5 mg p.o. daily. Increase labetalol to 400 mg p.o. b.i.d. Continue lisinopril 20 b.i.d. and amlodipine 10 q.day. Recommended lifestyle modifications and compliance with the management and treatment plan. Had thorough counseling with the patient regarding the importance of staying compliant. Hyperkalemia The patient's hyperkalemia is resolved. Potassium has been stable. Continue to monitor electrolytes. Acute respiratory distress Congestive heart failure preserved ejection fraction Fluid overload due to end-stage renal disease ECHO: Conclusion Overall LVEF is 65%. Normal LV size and function. Mild tomorrow concentric hypertrophy. RV is normal size and function. Elevated PA systolic pressure of 49 mm of mercury. Trileaflet AV appears mildly sclerotic without stenosis. No insufficiency. Mitral valve leaflets are mildly thickened with mild annular calcificartion. No stenosis. Trace regurgitation by color and spectral flow Doppler. The pulmonary valve is normal in structure. with physiologic insufficiency by color and spectral flow Doppler. Mild circumferential pericardial effusion without hemodynamic compromise. Slight diastolic RV/RA compression present without tamponade. Pleural effusion present. Had undergone two cycles of dialysis during this admission. Tolerated the procedure well. Shortness of breaths and respiratory distress improved significantly. Maintain euvolemia. Strict input and output monitoring recommended. Left hand pain The patient reports having with a left-handed pain overnight. He was treated with the aspirin and p.o. nitroglycerin. He reported that the pain has improved significantly and there is no recurrence of the pain. There was no associated shortness of breath, diaphoresis reported by the patient. EKG showed nonspecific ST-T changes. The on-call marketing compliance manager Dr. Cuadra was consulted by the night team. Per the marketing compliance manager the patient was in no emergent need for cardiac catheterization. Continue management per the primary team and marketing compliance manager team. CODE STATUS: Full code Disposition: Continue medical management. Continue to monitor the patient's renal function and electrolytes closely. Anticipate discharge home in the next 24-48 hours. Bartolo Hernández MD Internal Medicine Resident, PGY-3 Nephrology attending: Patient seen and examined. CAre plan reviewed with reisdent.He has been dialyzed today and he now feels a lot better with his coughing. He agrees as outpateint to get the dry weight adjusted downwards further to help. Agrees to be compliant. extrmely worried that he may even if he doesn't follow his rules of life. he just lost his nephew 9 years old to asthma today in ER. He had chest pain earlier and is waiting chelly cleared by Cardiology. Lester Rodriguez MD Date of Service: Mar 22, 2025 Billing Provider: LESTER RODRIGUEZ MD, SURYA PRATIK, RES Mar 22, 2025 14:32 LESTER RODRIGUEZ MD Mar 22, 2025 17:50
--- NOTE | 2025-03-22 19:26 | DISCHARGE SUMMARY ---
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 Anemia hemoglobin 9 Hyperkalemia CHF in exacerbation preserved ejection fraction Bilateral pleural effusions Thrombocytopenia Additional comorbidities, history of cholecystectomy, methamphetamine use remote clean now, noncompliance with treatment Admission Diagnosis: HTN emergency , IN; CHF ; ESRD HD Admission Diagnosis Comment: Hypertensive emergency End-stage renal disease hemodialysis 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 Anemia hemoglobin 9 Hyperkalemia CHF in exacerbation preserved ejection fraction Bilateral pleural effusions Thrombocytopenia Additional comorbidities, history of cholecystectomy, methamphetamine use remote clean now, noncompliance with treatment Hospital Course DATE OF ADMISSION: March 20, 2025 DATE OF DISCHARGE: March 22 2025 Discharge Diagnosis\Comment: Hypertensive emergency End-stage renal disease hemodialysis 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 a 39 year old male with HTN, ESKD on HD TTS , history of hypertension, bilateral pleural effusions, thrombocytopenia, atrophic kidneys, CHF, cholecystectomy, history of methamphetamine abuse remote, clean now, anemia hemoglobin 9, hypoalbuminemia, presented today to emergency department chief complaint shortness of breath associated with cough; in addition patient came to the ER with cc of sob, orthopnea, dry cough for > 2weeks, he is not able to sleep during the nights due to nocturnal cough, he denies LE edema, he dose produce urine. denies fever, he has undergone HD yesterday, he is underging eval for LDKT from his [facility], undergoing HD > 1 Year, and was told he had atrophic kidneys. Emergency department patient was evaluated by physician was diagnosed with hypertensive emergency, and after consultation with Nephrology doctor decision was made to admit patient for further evaluation and treatment, patient started on Cardene infusion. No additional complaint or concerns. After admission patient was extensively evaluated treated today he feels fine asking to be discharged home for family emergency reasons, medication reconciled follow-up PCP Cardiology in the morning, and Nephrology in two days, today on physical exam Vital signs, stable ,afebrile. Pulse Oximetry reflects adequate oxygenation. General: well developed, well nourished. Awake , alert, and oriented x4, resting comfortably in the bed, in no acute distress . Skin: Warm, dry, no pallor, no rash or petechiae. HEENT: Atraumatic, normocephalic, EOMI, anicteric sclera B; pink conjunctiva; PERRLA, normal oropharynx, moist oral and nasal mucosa. Tympanic membrane , nose , throat clear. Neck: Trachea midline. Supple, full range of motion, no JVD, bruit , hepatojugular reflex , lymphadenopathy or masses, or other lesions Cardiac: Regular rhythm, regular rate no murmurs, rubs, or gallops. Normal S1 and S2, no S3 noticed. PMI is normal. Respiratory: Equal breath sounds bilaterally, no tachypnea; lungs clear to auscultation bilaterally, no wheezing ,rub or rales, or crackles. Chest wall is symmetric and without deformity. No signs of trauma. Chest wall is nontender. No signs of respiratory distress. Resonance is normal upon percussion bilaterally. Gastrointestinal: Abdomen symmetric, non-distended, soft, non-tender, normal bowel sounds x4 quadrant, normoactive, no hepatosplenomegaly , no masses , no bruit, no flank pain bilaterally. No voluntary guarding, rebound, or rigidity. No tenderness to percussion. No pulsatile masses. Equal femoral pulses. No Cardoza's sign or McBurney point tenderness. Back; no CVA tenderness bilaterally, no deformities. Neck and back are without deformity as well. No tenderness noted on palpation of the spinous processes. Spinous processes are midline. Cervical, thoracic, and lumbar paraspinal muscles are not tender and are without spasm. : normal external genitalia, without lesions, swelling, masses or tenderness. Musculoskeletal: Extremities, normal range of motion, non-tender, muscle strength 5/5 x 4. Negative Homans signs bilaterally on lower extremity. Distal pulses full symmetrical, no clubbing, cyanosis , edema. Neurological: Speech is clear, alert, and oriented x 4. No motor or sensory deficit, deep tendon reflexes normal, cerebellar intact. Cranial nerves II-XII intact. Psych: Alert and or appropriate, normal affect. Vascular: Good distal pulses, which are equal x4; capillary refill less than 2 seconds. Lymphatic, no lymphadenopathy. *Problems/Diagnosis: (1) Fluid overload (2) Non compliance with medical treatment (3) Hypertensive emergency Status: Acute Total Time Spent on D/C: > 30 Minutes Date of Service: Mar 22, 2025 Billing Provider: ERIC BLACK MD Common Visit Codes: 54862-IQG/OBS DISCH DAY >30min ERIC BLACK MD Mar 22, 2025 19:26
[2025-03-25 05:11] LABS: ANTISTREPTOLYSIN O AB 142.5 IU/mL (0.0-200.0); COMPLEMENT C3, SERUM 101 mg/dL (82-167); COMPLEMENT C4, SERUM 22 mg/dL (12-38)
[2025-03-25 15:10] LABS: METANEPHRINE, PL 69.8 pg/mL (0.0-88.0); NORMETANEPHRINE, PL 211.1 pg/mL (0.0-210.1)
[2025-03-26 05:12] LABS: HBSAG SCREEN Negative (Negative)
[2025-03-26 11:14] LABS: ANTINUCLEAR ANTIBODIES Negative (Negative); ATYPICAL PANCA <1:20 titer (Neg:<1:20); CYTOPLASMIC (C-ANCA) <1:20 titer (Neg:<1:20); PERINUCLEAR (P-ANCA) <1:20 titer (Neg:<1:20)
== END 2025-03-22 18:45 | disposition home or self-care (01) | DRG 280 ==
LOC: ER 11:40 → ED HOLD 14:45 → PCU 3S 18:14
PROVIDERS: ADMIT Family Medicine; ATTEND Family Medicine
PROC: 5A1D70Z Performance of Urinary Filtration, Intermittent, Less than 6 Hours Per Day (ICD-10-PCS; principal; 2025-03-20)
PROC: 5A1D70Z Performance of Urinary Filtration, Intermittent, Less than 6 Hours Per Day (ICD-10-PCS; 2025-03-22)
DX: I13.2 Hypertensive heart and chronic kidney disease with heart failure and with stage 5 chronic kidney disease, or end stage renal disease (principal); I50.33 Acute on chronic diastolic (congestive) heart failure; I21.A1 Myocardial infarction type 2; N18.6 End stage renal disease; D69.6 Thrombocytopenia, unspecified; Z99.2 Dependence on renal dialysis; I16.1 Hypertensive emergency; F15.10 Other stimulant abuse, uncomplicated; D64.9 Anemia, unspecified; E87.5 Hyperkalemia; Z88.1 Allergy status to other antibiotic agents; Z79.899 Other long term (current) drug therapy; Z90.49 Acquired absence of other specified parts of digestive tract; Z91.198 Patient's noncompliance with other medical treatment and regimen for other reason
CPT/HCPCS: 36415; 71045; 80053; 81001; 82550; 83605; 83615; 83735; 83835; 83880; 84439; 84443; 84484; 85025; 85610; 85651; 85730; 86038; 86060; 86160; 86256; 86703; 87040; 87081; 87340; 93005; 93306; 93975; 96365; 96375; 99285; A4615; A6258; E1594; G0257; G0378; J0360; J1644; J1938; J3490; J7030; Q4081

== ENCOUNTER 2025-03-28 11:37 | Emergency (ER) | payer MEDICARE, MEDICAID ==
[~2025-03-28] VITALS: Ht 170.2 cm; Wt 62.7 kg
[~2025-03-28 11:37] MED LIST: AMLO10TA13 PO; LISI20TA28 PO; [UNRECOGNIZED DRUG - CODE] PO
[2025-03-28 11:43] VITALS: TEMP 98
[2025-03-28 12:59] LABS: MEAN PLATELET VOLUME 7.1 FL (7.4-10.4); RED CELL DISTRIBUTION WIDTH 16.5 % (11.5-14.5)
[2025-03-28 13:09] LABS: CREATININE 11.86 MG/DL (0.60-1.10); TOTAL CARBON DIOXIDE 31.2 MMOL/L (24-32); eCRCL 7 ML/MIN; eGFR 5 ML/MIN
--- NOTE | 2025-03-28 13:11 | RADIOLOGY REPORT ---
CHEST RADIOGRAPH INDICATION: productive cough TECHNIQUE: Single frontal view of the chest was obtained COMPARISON: DI CHEST,SINGLE VIEW on DOS: 03/21/25, DI CHEST,SINGLE VIEW on DOS: 03/20/25 FINDINGS: Lines and Tubes: Right central line is in the superior vena cava. Lungs: Clear Pleura: No effusion. No pneumothorax. Cardiomediastinal contours: Unremarkable Bones: Unremarkable IMPRESSION: 1. No acute cardiopulmonary disease. Right central line is in the superior vena cava.
[2025-03-28] MEDS: furosemide 10 MG/1 ML 10ml inj IV ONE (13:58)
--- NOTE | 2025-03-28 14:01 | Physician Documentation ---
History of Present Illness ~ Chief Complaint: See Chief Complaint Stated Complaint: COUGH, PAIN, PNEUMONIA SYMPTOMS Time Seen by MD: 11:57 OK to notify your PCP?: Yes Primary Medical Doctor: [facility] Source: patient Mode of Arrival: POV Exam Limitations: no limitations HPI Reports having shortness of breath since last night. He reports that he feels that he can not lay flat but is able to rest when sitting upright. He is on dialysis with a port to his right chest. He normally goes on Saturdays but due to the holiday, he went on Tuesday but is not due to go until tomorrow at 11:00 a.m.. He reports that he is on dialysis due to kidney atrophy. Denies any upper respiratory infection symptoms. He reports that he has had a pink frothy sputum type cough from time to time. He was admitted last week for fluid overload and received dialysis in the hospital. He reports that he used to produce a large amount a urine but he has been producing much less than normal. He reports that yesterday he did drink a lot of water and had vari ous foods for the holiday which may have exacerbated his problems. Last week they gave him Lasix and that did help with his shortness of breath and it did increase his urination pattern some. Medication Reconciliation Allergies: Coded Allergies: cefazolin (Unverified Allergy, Unknown, 03/20/25) Scheduled Amlodipine Besylate (Amlodipine Besylate), 1 TAB PO HS, (Reported) Labetalol Hcl (Normodyne), 400 MG PO BID, (Reported) Lisinopril (Lisinopril), 1 TAB PO BID, (Reported) Past Medical History Past Medical History: Hypertension Past Surgical History: cholecystectomy Alcohol Use: Occasionally Drug Use: none Lives with: Family Lives In: Home Review of Systems All Other Systems at this time: Reviewed and Negative Physical Exam Vital Signs: RN Vital Signs have been reviewed: Yes, Temperature: 98.0, Source: Temporal, Heart Rate: 76, Respiratory Rate: 16, BP: 158/125, Pulse Oximetry: 98, Weight: 62.700 Oxygen Flow Rate: 0 Pulse Oximetry Reflects: adequate oxygenation Physical Exam General: Alert, no apparent distress. HEENT: PERRL, EOMI, no injection, moist mucous membranes. Neck: Full range of motion. Respiratory: Lungs clear, no respiratory distress. Good air movement Chest: No accessory muscle use. Dialysis central line port to right chest. Cardiovascular: Regular rate and rhythm, no murmurs. Gastrointestinal: Soft, nontender, nondistended. Bowels sounds present. Extremities: Normal range of motion, no deformity. Neurologic: Oriented x4. Psychiatric: Normal mood and affect. Skin: Normal color, warm and dry. No edema, no ecchymosis. Progress Results/Orders Results/Orders Orders - KATHY GOMEZ [address] [employer] [address] [employer] Chest,Single View (03/28/25 12:32) Completed Orders - KATHY GOMEZ Cbc/Diff (03/28/25 12:32) CMP (03/28/25 12:32) Chest,Single View (03/28/25 12:32) Furosemide Inj (Lasix Inj) (03/28/25 13:50) Medications Received in ER Medications (Trade) Dose Ordered Sig/Kaylee Route PRN Reason Start Time Stop Time Status Last Admin Dose Admin (Lasix inj) 60 mg ONCE ONCE IV 03/28/25 13:50 03/28/25 13:51 DC 03/28/25 13:58 60 MG Vital Signs 03/28/25 03/28/25 03/28/25 03/28/25 11:43 11:52 11:57 13:00 Temp 98.0 Pulse 75 76 87 Resp 16 18 16 16 B/P (MAP) 177/126 158/125 (136) 180/115 (136) Pulse Ox 99 98 95 O2 Flow Rate 0 0 03/28/25 03/28/25 14:00 14:18 Pulse 74 82 Resp 16 16 B/P (MAP) 171/123 (139) 189/127 Pulse Ox 97 95 O2 Flow Rate 0 Laboratory Tests Test 03/28/25 12:10 White Blood Count 4.7 Red Blood Count 2.35 L Hemoglobin 8.1 L Hematocrit 23.3 L Mean Corpuscular Volume 99.3 H Mean Corpuscular Hemoglobin 34.5 H Mean Corpuscular Hemoglobin Concent 34.8 Red Cell Distribution Width 16.5 H Platelet Count 312 Mean Platelet Volume 7.1 L Neutrophils (%) (Auto) 56.4 Lymphocytes (%) (Auto) 27.8 Monocytes (%) (Auto) 11.3 Eosinophils (%) (Auto) 3.6 Basophils (%) (Auto) 0.9 Neutrophils # (Auto) 2.7 Lymphocytes # (Auto) 1.3 Monocytes # (Auto) 0.5 Eosinophils # (Auto) 0.2 Basophils # (Auto) 0.0 CBC Comment Sodium Level 144 Potassium Level 5.1 Chloride Level 104 Carbon Dioxide Level 31.2 Anion Gap 9 Blood Urea Nitrogen 41 H Creatinine 11.86 H Estimated GFR/1.73 m2 5 BUN/Creatinine Ratio 3.5 L Glucose Level 86 Calcium Level 7.6 L Total Bilirubin 0.5 Aspartate Amino Transf (AST/SGOT) 18 Alanine Aminotransferase (ALT/SGPT) 28 Alkaline Phosphatase 58 Total Protein 5.6 L Albumin 2.8 L Globulin 2.8 Albumin/Globulin Ratio 1.0 L Chemistry Comments EKG/XRAY/CT/US/VASC/MRI Chest X-Ray : Additional Comments Chest x-ray: as interpreted by me; no large effusion, no large infiltrate, normal mediastinum. There is a central line to right chest. Medical Decision Making Additional information obtaine: old records, family Findings Patient reports having shortness of breath from possible fluid overload. He is a dialysis patient and his schedule has been move around due to the holiday. Today would normally be his dialysis day but it got moved till tomorrow due to [place]. He was admitted last week for the same thing. He was given Lasix and that helped his symptoms last time as well as increase some of his urination. He reports he has been drinking more water than usual and having various foods due to the holiday which may have exacerbated his problems. He is requesting to have Lasix again to see if this can help with his shortness of breath and get him through till his appointment tomorrow at 11:00 a.m.. Gave 60 mg of Lasix IV. Chest x-ray was clear no signs of pleural effusion. Reports feeling short of breath although he is 99-100% on room air with out obvious respiratory distress. We discussed discharge and he feels like he is stable enough with his breathing to continue with his regular appointment tomorrow for dialysis. Discussed with the Lasix may help with urination and help lower his blood pressure although due to his decreased urination pattern it also may not be very effective. He is willing to give the Lasix try. Initially hypertensive on arrival but this has slowly decreased during his visit. His potassium is 5.1 and he is anemic with hemoglobin of 8.1. He is requesting to be discharged does not want to be admitted for dialysis. Heart Score: 0 Differential Dx:Considerations: Include: anxiety, bronchitis, CHF Departure Disposition: HOME / SELF CARE / HOMELESS Impression: Primary Impression: Fluid overload Additional Impression: Anemia Condition: Stable Discharge Instructions: Fluid Restriction Additional Instructions: Continue with dialysis appointment at 11:00 a.m. tomorrow morning. Please restrict fluids until your appointment to prevent further fluid overload. Return back here for any new or worsening symptoms. Referrals: NO PRIMARY CARE PROVIDER (PCP) Education Educated: Patient Educated regarding: diagnosis, treatment, prognosis, need for follow up Additional Comment Medical Screen Exam This patient recieved a medical screening examination. After reviewing the individual's medical complaints with presenting symptoms and performing an appropriate physical examination, it was determined that no immediate life- threatening emergency medical condition is present. This individual is also not a women having contractions. Signature Scribe Signature: . Attestation: Scribed for Kathy Gomez by Kathy Montanez NP . 03/28/25 14:23 Parts of this note were created using [email or web address] voice recognition software [employer]. While efforts were made to correct any mistakes made by this voice recognition software program, nonsensical phrases may remain in this note. In addition, there may be errors and syntax, grammar, content and spelling. KATHY GOMEZP Mar 28, 2025 14:01
[2025-03-28 14:18] VITALS: BP 189/127; PULSE 82; RESP 16; O2SAT 95
== END 2025-03-28 14:20 | disposition home or self-care (01) ==
LOC: ER 11:39
DX: E87.70 Fluid overload, unspecified (principal); D64.9 Anemia, unspecified; I10 Essential (primary) hypertension; Z88.1 Allergy status to other antibiotic agents; Z90.49 Acquired absence of other specified parts of digestive tract; Z99.2 Dependence on renal dialysis; Z72.89 Other problems related to lifestyle; Z79.899 Other long term (current) drug therapy
CPT/HCPCS: 36415; 71045; 80053; 85025; 96374; 99285; J1938